=== PATIENT | female | born 1980 | race Caucasian/White ===

== ENCOUNTER 2021-09-16 08:40 | Emergency (ER) | payer SELFPAY ==
[~2021-09-16] VITALS: Ht 170.2 cm; Wt 81.7 kg
[~2021-09-16 08:40] MED LIST: ACET500; CYCL10 PO; HYDACE5 PO; IBUP800 PO; NITR100CA PO; TRAM50 PO
== END 2021-09-16 12:40 | disposition home or self-care (01) ==
LOC: ER 08:40
DX: S02.40CA Maxillary fracture, right side, initial encounter for closed fracture (principal); S02.40EA Zygomatic fracture, right side, initial encounter for closed fracture; H11.31 Conjunctival hemorrhage, right eye; Z88.2 Allergy status to sulfonamides; Y04.8XXA Assault by other bodily force, initial encounter
CPT/HCPCS: 70486; 99284-25

== ENCOUNTER 2023-09-12 01:41 | Emergency (ER) | payer OTHER ==
[~2023-09-12] VITALS: Ht 167.6 cm; Wt 63.5 kg
[2023-09-12 02:00] VITALS: BP 145/104
[2023-09-12] MEDS ORDERED: OMEP20ER PO (02:20)
[2023-09-12] MEDS ORDERED: CITALOPRAM HBR10 MG PO (02:20)
== END 2023-09-12 04:25 | disposition home or self-care (01) ==
LOC: ER 01:41
DX: S52.202A Unspecified fracture of shaft of left ulna, initial encounter for closed fracture (principal); S80.811A Abrasion, right lower leg, initial encounter; W10.8XXA Fall (on) (from) other stairs and steps, initial encounter; Z88.2 Allergy status to sulfonamides; Z79.899 Other long term (current) drug therapy; J44.9 Chronic obstructive pulmonary disease, unspecified; F17.210 Nicotine dependence, cigarettes, uncomplicated
CPT/HCPCS: 29105; 73090; 96374-59; 99283-25; A9270; J1885

== ENCOUNTER 2025-02-05 12:15 | Emergency (ER) | payer OTHER ==
[~2025-02-05] VITALS: Ht 170.2 cm; Wt 70.3 kg
[~2025-02-05 12:15] MED LIST changes: +CITALOPRAM HBR10 MG PO; +OMEP20ER PO
[2025-02-05 12:39] VITALS: BP 165/114
== END 2025-02-05 13:03 | disposition home or self-care (01) ==
LOC: ER 12:15
DX: S50.11XA Contusion of right forearm, initial encounter (principal); S00.531A Contusion of lip, initial encounter; F10.90 Alcohol use, unspecified, uncomplicated; J44.9 Chronic obstructive pulmonary disease, unspecified; F17.210 Nicotine dependence, cigarettes, uncomplicated; W10.9XXA Fall (on) (from) unspecified stairs and steps, initial encounter; Z79.899 Other long term (current) drug therapy; Z88.2 Allergy status to sulfonamides
CPT/HCPCS: 73090; 99283-25

== ENCOUNTER 2025-05-31 13:32 | Emergency (ER) | payer OTHER ==
[~2025-05-31] VITALS: Ht 170.2 cm; Wt 72.6 kg
[2025-05-31 14:06] VITALS: BP 197/124
== END 2025-05-31 15:51 | disposition home or self-care (01) ==
LOC: ER 13:32
DX: S81.012A Laceration without foreign body, left knee, initial encounter (principal); J44.9 Chronic obstructive pulmonary disease, unspecified; Y09 Assault by unspecified means; F17.210 Nicotine dependence, cigarettes, uncomplicated; Z79.899 Other long term (current) drug therapy; Z88.2 Allergy status to sulfonamides
CPT/HCPCS: 12004; 70450; 72125; 73562-LT; 90471; 90715; 99284-25; A9270

== ENCOUNTER 2025-06-07 10:17 | Emergency (ER) | payer OTHER ==
[~2025-06-07] VITALS: Ht 167.6 cm; Wt 68.0 kg
[2025-06-07 11:06] VITALS: BP 156/103
[2025-06-07] MEDS ORDERED: CEPH500 PO (12:10)
== END 2025-06-07 12:00 | disposition home or self-care (01) ==
LOC: ER 10:17
DX: S81.012D Laceration without foreign body, left knee, subsequent encounter (principal); L03.116 Cellulitis of left lower limb; I10 Essential (primary) hypertension; F17.210 Nicotine dependence, cigarettes, uncomplicated; X58.XXXD Exposure to other specified factors, subsequent encounter; Z59.89 Other problems related to housing and economic circumstances
CPT/HCPCS: 99281